=== PATIENT | male | born 1960 | race Caucasian/White ===

== ENCOUNTER 2016-03-14 09:06 | Emergency (ER) | payer SELFPAY ==
[~2016-03-14] VITALS: Wt 91.2 kg
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
[2016-03-14] MEDS ORDERED: CITA10TA72 PO (15:46)
[2016-03-14] MEDS ORDERED: IBUP-1542 PO ×2 (15:46→17:42)
[2016-03-14 16:02] LABS: BASOPHILS % 0.5 % (0.0-2.0); CONDITION 1; EOSINOPHILS # 0.1 10^3/ul (0.0-0.5); EOSINOPHILS % 0.9 % (0.0-7.0); LYMPHOCYTES # 2.8 10^3/ul (0.8-2.9); LYMPHOCYTES % 30.9 % (15.0-51.0); MEAN CORPUSCULAR HEMOGLOBIN 31.3 pg (29.0-33.0); MEAN CORPUSCULAR HGB CONC 33.9 g/dl (32.0-37.0); MEAN CORPUSCULAR VOLUME 92.1 fl (82.0-101.0); MEAN PLATELET VOLUME 8.1 fl (7.4-10.4); MONOCYTE # 0.4 10^3/ul (0.3-0.9); MONOCYTES % 4.9 % (0.0-11.0); NEUTROPHIL # 5.6 10^3/ul (1.6-7.5); NEUTROPHILS % 62.8 % (39.0-77.0); PLATELET COUNT 256 10^3/UL (140-440); RED BLOOD COUNT 5.11 10^6/ul (4.70-6.10); RED CELL DISTRIBUTION WIDTH 13.6 % (11.5-14.5)
--- NOTE | 2016-03-14 16:07 | RADRPT ---
PROCEDURE: Chest Radiograph. CLINICAL INDICATION: Chest pain TECHNIQUE: Single frontal chest radiograph. COMPARISON: None available FINDINGS: The cardiomediastinal silhouette is within normal limits. No infiltrate or effusion is seen. Th e bones are intact. IMPRESSION: 1. Unremarkable chest radiograph. RPTAT: KK .Marlon Tamayo MD, MD Date Time Electronically viewed and signed by .Marlon Tamayo MD, on 03/14/2016 16:06 .B/
[2016-03-14 16:15] LABS: INR 0.97; PROTIME 12.9 Sec (12.2-14.2)
[2016-03-14 16:16] LABS: PARTIAL THROMBOPLASTIN TIME 28.9 Sec (25.0-35.0)
[2016-03-14 16:18] LABS: CHLORIDE 101 mmol/L (97-110)
[2016-03-14 16:19] LABS: POTASSIUM 4.2 mmol/L (3.5-5.1); SODIUM 142 mmol/L (135-144)
[2016-03-14 16:21] LABS: CREATININE 0.93 mg/dl (0.61-1.24)
[2016-03-14 16:22] LABS: ANION GAP 18 (8-16); BLOOD UREA NITROGEN 12 mg/dl (7-20); CARBON DIOXIDE 27 mmol/L (21-31); GLUCOSE 86 mg/dl (70-220)
[2016-03-14 16:42] LABS: TROPONIN-I < 0.012 ng/ml (0.00-0.12)
[2016-03-14 18:04] VITALS: BP 129/85; PULSE 56; RESP 14
== END 2016-03-14 18:10 | disposition home or self-care (01) ==
LOC: E/R 09:06
DX: M54.12 Radiculopathy, cervical region (principal); R40.2252 Coma scale, best verbal response, oriented, at arrival to emergency department; R07.9 Chest pain, unspecified; R40.2142 Coma scale, eyes open, spontaneous, at arrival to emergency department; R40.2362 Coma scale, best motor response, obeys commands, at arrival to emergency department
CPT/HCPCS: 36415; 71010; 80048; 84484; 85025; 85610; 85730; 93005